=== PATIENT | male | born 1960 | race Caucasian/White ===

== ENCOUNTER 2021-01-13 14:30 | Emergency (ER) | payer BC ==
[~2021-01-13] VITALS: Ht 172.7 cm; Wt 88.5 kg
[2021-01-13] MEDS ORDERED: PREDNISONE5 MG PO (14:43)
[2021-01-13] MEDS ORDERED: ZYTIGA250 M1 PO (14:44)
[2021-01-13] MEDS ORDERED: METOPROLOL SUCC25 M2 PO (14:45)
[2021-01-13] MEDS ORDERED: LEVOTHYROXINE75 MC1 PO (14:45)
[2021-01-13] MEDS ORDERED: TIKOSYN500 MCG PO (14:45)
== END 2021-01-13 17:44 | disposition left against medical advice (07) ==
LOC: ED 14:30
DX: S99.912A Unspecified injury of left ankle, initial encounter (principal); Z53.21 Procedure and treatment not carried out due to patient leaving prior to being seen by health care provider; X58.XXXA Exposure to other specified factors, initial encounter; Y93.89 Activity, other specified; Y92.89 Other specified places as the place of occurrence of the external cause; Y99.8 Other external cause status